=== PATIENT | male | born 1955 | race Caucasian/White ===

== ENCOUNTER → 2022-12-04 05:41 | Outpatient (ROUT) | payer MEDICARE, OTHER, SELFPAY ==
[2022-12-04 05:54] LABS: Appearance Urine UA CLEAR; Bilirubin Urine UA NEGATIVE (NEGATIVE); Color Urine UA YELLOW; Glucose Urine UA NEGATIVE (Negative); Ketones Urine UA NEGATIVE (NEGATIVE); Leukocyte Esterase Urine UA NEGATIVE (NEGATIVE); Nitrite Urine UA NEGATIVE (Negative); Occult Blood Urine UA NEGATIVE (Negative); Protein Urine UA NEGATIVE (Negative); Specific Gravity Urine UA <=1.005 (1.000-1.035); Urobilinogen Urine UA 0.2 E.U./dL (0.2)
[2022-12-04 05:57] LABS: Bacteria Urine Occasional (0-1); RBC Urine 0-1/HPF (0-5/HPF); Squamous Epithelial Cell Urine 0-1 /HPF (0-5/HPF); WBC Urine 0-1/HPF (0-5/HPF)
[2022-12-04 05:58] LABS: Culture Indicated Urine Cult Not Indicated
== END ==
PROVIDERS: Visit Provider Internal Medicine
DX: Z11.2 Encounter for screening for other bacterial diseases (principal)
CPT/HCPCS: 81001

== ENCOUNTER 2022-12-20 16:35 | Emergency (ER) | payer MEDICARE, OTHER, SELFPAY ==
[2022-12-20 16:55] VITALS: BP 134/69; PULSE 82; RESP 18; TEMP 36.6; O2SAT 100
== END 2022-12-20 17:46 | disposition left against medical advice (07) ==
CPT/HCPCS: 99281